=== PATIENT | male | born 1995 | race Caucasian/White ===

== ENCOUNTER 2023-05-17 23:11 | Emergency (ER) | payer OTHER, SELFPAY ==
[2023-05-18] MEDS ORDERED: Boostrix 0.5 ML (Tdap) VIAL (>/=7 yrs of age) ONE (00:59)
[2023-05-18] MEDS ORDERED: Morphine 4 MG/ML VIAL ONE (01:27)
[2023-05-18] MEDS ORDERED: Ondansetron PF 4 MG/2 ML Vial ONE (01:27)
== END 2023-05-18 03:20 | disposition short-term general hospital (02) ==
LOC: ERS 23:11
DX: S61.216A Laceration without foreign body of right little finger without damage to nail, initial encounter (principal); S61.214A Laceration without foreign body of right ring finger without damage to nail, initial encounter; V86.95XA Unspecified occupant of 3- or 4- wheeled all-terrain vehicle (ATV) injured in nontraffic accident, initial encounter; Z23 Encounter for immunization
CPT/HCPCS: 90471; 90715; 96374; 96375; J2270; J2405